=== PATIENT | male | born 1995 | race African-American/Black ===

== ENCOUNTER 2017-07-24 23:55 | Emergency (ER) | payer OTHER ==
[~2017-07-24] VITALS: Ht 182.9 cm; Wt 81.6 kg
--- NOTE | ~2017-07-24 | CR286 ---
[facility] A Service of [facility] & [facility] RADIOLOGY TEXT RESULTS PATIENT: DELFIN FLOYD LOCATION: [facility] : [birth year] UNIT #: [id number] AGE: [address]: Yovany Sifuentes MD SEX: M ORDER DR: [id number] [facility]. [place], [place] [address] [id number] MR#: [id number] Acc #: [id number] NAME: DELFIN FLOYD : 1995 SEX: M STUDY DATE/TIME: 07/25/2017 0:50 UNIT: [facility] ROOM: STUDY DESCRIPTION: CR Wrist W Navicular Min 3 Rt Attending Physician: Yovany Sifuentes M.D. Ordering Physician: Yovany Sifuentes M.D. Primary Care Physician: Primary Care Physician No MEDICAL IMAGING REPORT This report is preliminary unless electronic signature is present EXAM Right wrist series 07/25/2017 HISTORY 21-year-old male in the ED complaining of wrist pain and soft tissue swelling after fall tonight prior to arrival. TECHNIQUE Three-view right wrist series with supplemental scaphoid view. FINDINGS There is a nondisplaced, slightly impacted transverse fracture across the distal radius at the level of the radioulnar articulation. No carpal wrist fracture is demonstrated. The scaphoid is negative. No visible distal ulna fracture. IMPRESSION 1. Nondisplaced, slightly impacted transverse fracture across the distal radius. 2. No additional wrist fracture is seen. Soft tissue swelling. Dictated by... Oleg Lindsay M.D. THIS IS AN ELECTRONICALLY VERIFIED REPORT Oleg Lindsay M.D. at 07/25/2017 9:58 PM AIDA/sue TD: 07/25/2017 09:31 JOB #: [id number] MEDICAL IMAGING REPORT Page 1 of 1 COPY
== END 2017-07-25 02:30 | disposition home or self-care (01) ==
LOC: CED 23:55
DX: S52.501A Unspecified fracture of the lower end of right radius, initial encounter for closed fracture (principal); F17.200 Nicotine dependence, unspecified, uncomplicated; W19.XXXA Unspecified fall, initial encounter; Y92.009 Unspecified place in unspecified non-institutional (private) residence as the place of occurrence of the external cause
CPT/HCPCS: 29125; 73110; 99283